=== PATIENT | male | born 1965 | race Caucasian/White ===

== ENCOUNTER 2020-12-07 08:10 | Emergency (ER) | payer OTHER, SELFPAY ==
[2020-12-07 08:24] VITALS: BP 135/100; PULSE 64; RESP 16; TEMP 35.9; O2SAT 99
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
== END 2020-12-07 09:13 | disposition home or self-care (01) ==
PROVIDERS: Emergency Provider Nurse Practitioner Family
DX: S39.012A Strain of muscle, fascia and tendon of lower back, initial encounter (principal); V44.5XXA Car driver injured in collision with heavy transport vehicle or bus in traffic accident, initial encounter
CPT/HCPCS: 99213; G0463

== ENCOUNTER 2023-10-30 13:33 | Emergency (ER) | payer OTHER, SELFPAY ==
--- NOTE | ~2023-10-30 | XR_ITS ---
XR ankle RT min 3V DATE: 10/30/2023 15:02 INDICATION: Heavy weight fell on patient. Right ankle injury, pain TECHNIQUE: 4 views COMPARISON: None FINDINGS: No fracture or dislocation of the ankle or disruption of the ankle mortise. Mild posterior and plantar calcaneal enthesopathy. IMPRESSION: No fracture or dislocation of the ankle Mild posterior and plantar calcaneal enthesopathy Reviewed, dictated and finalized at location A.
--- NOTE | ~2023-10-30 | XR_ITS ---
XR knee LT min 4V DATE: 10/30/2023 15:02 INDICATION: Heavy weight fell on patient. Left knee pain. TECHNIQUE: 4 views COMPARISON: None FINDINGS: No fracture or dislocation or joint effusion is evident. There is moderately prominent particular spurring at the patellofemoral and medial compartments and m oderately prominent loss of medial compartment joint space height. Lateral compartment joint space is well preserved. No radiopaque intra-articular loose body or chondral calcinosis. IMPRESSION: No fracture or dislocation or joint effusion Moderately severe medial and patellofemoral osteoarthritis Reviewed, dictated and finalized at location A.
--- NOTE | ~2023-10-30 | CT_ITS ---
EXAMINATION: CT lumbar spine wo con DATE: 10/30/2023 15:17 INDICATION: Fall. Back injury, pain TECHNIQUE: Computed tomography (CT) of the lumbar spine was performed without intravenous contrast. T he mA was adjusted according to patient size. Iterative reconstruction technique was employed. Exam d ose: 1102.93 mGy-cm total exam DLP. COMPARISON: None FINDINGS: Status post anterior and interbody surgical fusion at L5-S1. Status post interbody and posterior surgical fusion at L4-5. Moderate degenerative disc disease and mild retrolisthesis at L2-3. No recent fracture or bone destruction or spondylolisthesis is noted otherwise. IMPRESSION: Status post interbody and posterior surgical fusion at L4-5 Status post anterior interbody surgical fusion at L5-S1 Moderate degenerative disc disease and mild retrolisthesis at L2-3 No fracture is detected Reviewed, dictated and finalized at [facility]. Reviewed, dictated and finalized at location A.
--- NOTE | ~2023-10-30 | XR_ITS ---
XR knee RT min 4V DATE: 10/30/2023 15:02 INDICATION: Heavy weight fell on patient. Right knee pain. TECHNIQUE: 4 views COMPARISON: None FINDINGS: There is moderately severe loss of medial tibial joint space with prominent particular spur ring of the medial femoral condyle and medial tibial plateau. Lateral compartment joint space is well preserved. No fracture or dislocation or joint effusion. No periosteal reaction or bone destruction. No radiopaq ue intra-articular loose body or chondrocalcinosis. IMPRESSION: No fracture or dislocation or joint effusion Moderately severe medial compartment osteoarthritis Reviewed, dictated and finalized at location A.
[2023-10-30 13:38] VITALS: BP 144/83; PULSE 80; RESP 19; TEMP 36.4; O2SAT 98
--- NOTE | 2023-10-30 14:58 | ED.BACK ---
HPI - Back Pain/Injury General Chief Complaint: Back Pain/Injury Stated Complaint: back and knee injuries Time Seen by Provider: 10/30/23 14:12 History of Present Illness HPI Narrative: Patient is a 57-year-old male who presents to the emergency department this afternoon complaining of multiple joint pain and lower back after a fall that occurred yesterday. Patient states that he was opening a truck that had multiple long heavy pieces of moving a material and they were all wrapped together and they started to leading out of the truck and ended up pushing him causing him to fall on the ground on his right side. Patient denies hitting his head. He is currently complaining of bilateral knee pain, right ankle pain and lower back pain. Patient denies any loss of consciousness. States that he called a friend to help remove some of the pieces and was able to get up after that. Patient states that today he woke up with bilateral knee pain ankle pain and lower back pain and wanted to get checked out. Patient denies any chest pain or shortness of breath.No additional symptoms or concerns at this time. Related Data Allergies Allergy/AdvReac Type Severity Reaction Status Date / Time No Known Allergies Allergy Verified 10/30/23 13:41 Review of Systems Review of Systems: All systems are reviewed and are negative unless stated otherwise in the HPI. Exam Narrative: General: Alert, awake, afebrile, in no acute distress. HEENT: PERRL, no rhinorrhea, no post nasal drip, oropharynx clear. Cardiovascular: Regular rate and rhythm, no murmurs, rubs or gallops, no peripheral edema. Respiratory: Clear to auscultation bilaterally, no tachypnea, no wheezing, no rhonchi, no rubs, no respiratory distress. Abdomen: Soft, nontender, nondistended, no rebound, no guarding, no peritoneal signs. Musculoskeletal: No joint swelling or deformity, normal muscle tone, tenderness to palpation over the bilateral medial knees and right medial malleoli. Back: No midline tenderness to palpation over the cervical or thoracic spine, midline tenderness palpation over the lumbar spine, no step-offs or deformity. Skin: No rashes or petechia, no signs of infection. Neurological: Alert and oriented to person, place, and time. Follows all commands. No focal deficits, speech is clear and fluent. Course Vital Signs Vital signs: Vital Signs Temperature 97.6 F 10/30/23 13:38 Pulse Rate 80 10/30/23 13:38 Respiratory Rate 19 10/30/23 13:38 Blood Pressure 144/83 H 10/30/23 13:38 Pulse Oximetry 98 10/30/23 13:38 Temperature 97.6 F 10/30/23 13:38 Pulse Rate 80 10/30/23 13:38 Respiratory Rate 19 10/30/23 13:38 Blood Pressure 144/83 H 10/30/23 13:38 Pulse Oximetry 98 10/30/23 13:38 MDM - Back Pain/Injury MDM Narrative Medical decision making narrative: The patient was evaluated by myself in the emergency department. History is obtained from patient who is an independent historian and physical exam was performed. External medical records were reviewed at this time. Imaging studies obtained included bilateral knee x-rays, right ankle x-ray, and lumbar CT scan without contrast which was independently interpreted by me revealing no acute process, which is pending final radiology interpretation. Patient was instructed to use ibuprofen and or Tylenol as needed for pain. Differential diagnosis considerations include fractures, dislocation, musculoskeletal strain, meniscal tear. Comorbidities impacting this visit include history of chronic lower back pain with previous lower back surgery. I have evaluated and discussed social determinants of health with the patient that could potentially impact subsequent diagnosis and treatment plans. On repeat assessment of the patient, reevaluation revealed that the patient is doing well and is in no acute distress. Patient symptoms have remained stable since he arrived to our emergency department.
[2023-10-30 16:15] VITALS: BP 139/88; PULSE 64; RESP 16; TEMP 36.7; O2SAT 99
== END 2023-10-30 16:19 | disposition home or self-care (01) ==
PROVIDERS: Emergency Provider Emergency Medicine
DX: S39.012A Strain of muscle, fascia and tendon of lower back, initial encounter (principal); M17.0 Bilateral primary osteoarthritis of knee; M77.31 Calcaneal spur, right foot; W18.09XA Striking against other object with subsequent fall, initial encounter
CPT/HCPCS: 72131; 73564; 73610; 99284

== ENCOUNTER 2023-11-16 10:19 | Emergency (ER) | payer OTHER, SELFPAY ==
[2023-11-16 10:39] VITALS: BP 140/77; PULSE 73; RESP 16; TEMP 36.6; O2SAT 97
--- NOTE | 2023-11-16 11:03 | PC.NURSE ---
Patient states he is still having pain and is unable to work due to the pain. patient states he has not been able to get into a PCP for follow up
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
[2023-11-16 14:45] VITALS: BP 155/97; PULSE 74; RESP 16; TEMP 36.4; O2SAT 100
== END 2023-11-16 14:47 | disposition home or self-care (01) ==
PROVIDERS: Emergency Provider Emergency Medicine
DX: M54.16 Radiculopathy, lumbar region (principal); Z98.1 Arthrodesis status
CPT/HCPCS: 99283